=== PATIENT | female | born 1990 | race Two or more races ===

== ENCOUNTER 2020-11-17 05:02 | Inpatient (IN) | payer OTHER ==
[2020-11-17] MEDS ORDERED: Lidocaine 1% 50 ML MDV INJECT ONE (06:14)
[2020-11-17] MEDS ORDERED: Calcium Carbonate 500 MG Tab.Chew PO PRN (06:14)
[2020-11-17] MEDS ORDERED: Acetaminophen 325 MG Tab PO PRN ×2 (06:14→21:44)
[2020-11-17] MEDS ORDERED: Sodium Chloride 0.9% 10 ML Syringe FLUSH PRN (06:14)
[2020-11-17] MEDS ORDERED: Ondansetron 4 MG/2 ML SDV IVPUSH PRN (06:14)
[2020-11-17] MEDS ORDERED: Nalbuphine 10 MG/1 ML Vial IVPUSH PRN (06:14)
[2020-11-17] MEDS ORDERED: Lactated Ringers 1,000 ML IV SCH (06:15)
[2020-11-17] MEDS ORDERED: Oxytocin/Lactated Ringers 10 UNIT/1,000 ML BAG IV SCH ×2 (06:15)
--- NOTE | 2020-11-17 09:44 | PCM.LDHP ---
L&D History of Present Illness - General Date of Service: 11/17/20 Admit Problem/Dx: Patient Status Order with Admit Dx/Problem 11/17/20 05:13 Patient Status [ADT] Routine 11/17/20 06:14 Patient Status [ADT] Routine Admission Diagnosis/Problem Admission Diagnosis/Problem 11/17/20 09:35 Dalila is a 30-year-old 4 para 2-1-0-3 male at 39-3/7 weeks gestational age with an URIAH of 11/22/2011 admitted for active labor and progressive cervical dilation for a trial of labor after section for an attempt at vaginal after section. Source of Information: Patient History Limitations: Reports: No Limitations - History of Present Illness Introduction:: Dalila is a 30-year-old 4 para 2-1-0-3 male at 39-3/7 weeks gestational age with an URIAH of 11/23/2011 admitted for active labor and progressive cervical dilation for a trial of labor after section for an attempt at vaginal after section. Patient has had 2 vaginal deliveries with her first 2 pregnancies and then a section at 34 weeks for placenta previa. She wishes to be back. The procedure of , its risks, benefits, alternatives of care including repeat were discussed in detail with her. They have been previously discussed with her by Dr. Chavis. She wishes to proceed and has signed a consent for trial of labor after section for and for repeat section if necessary. Preoperative laboratory testing has been performed, consents are signed, patient has an IV in place, seizure and surgery services have been notified of her presence in L&D and she is evaluated with near continuous monitoring. COURT RECORDING MONITOR history: 3 para 2-1-0-3. URIAH of 11/22/2020 was determined by her LMP of 02/16/2020 and supported by an ultrasound done on 04/16/2020 and supported also by second ultrasound on 06/30/2020. She has had a relatively unremarkable course. She is received most of her care in [facility] but because they do not do VBACs there transferred her care to Dr. Christine at 31-2/7 weeks. She was seen by Dr. Chavis for 3 visits. She reports no significant concerns with her . Her weight gain was approximately 20 pounds. No signs been stable throughout the . Laboratory testing in : Blood is O+ with a negative antibody screen. First hemoglobin was 13.5 and platelets were 283,000. She is rubella immune. RPR is nonreactive. Syphilis IgG and IgM nonreactive. Hepatitis B surface antigen nonreactive. Hepatitis C nonreactive. Chlamydia and gonorrhea test both negative. Second trimester hemoglobin is 10.8 g/dL and platelets are 239,000. 1 hour GTT was normal at 104. Group B strep was negative. Allergies: None Medications: 1. vitamins 1 daily Past medical history: 1. Vaginal delivery x2 Past surgical history: 1. Appendectomy 2. [place] tooth extraction Family history: Mother and father are alive and generally good health. Patient has multiple brothers and sisters who are alive and well. Paternal grandfather is alive in his 90s and reasonably healthy. Paternal grandmother secondary to old age. Maternal grandparents both . No anesthesia, bleeding, blood clotting problems noted in the family. Patient is . is Morales. She does not use any significance alcohol, drugs or tobacco. She works outside the home. works in the [employer]. Review of systems: Review of systems: In general patient has no complaints except for contractions that are coming on a more frequent basis every 6 to 7 minutes. She has had some bloody show also. If she is made cervical change from evaluation clinic. Skin: Negative Lungs: No infectious symptoms or shortness of breath Cardiovascular: No chest pain or exercise intolerance Breasts: No lumps, changes in size, pain, dimpling, discharge or axillary or supraclavicular concerns. Patient plans to breast-feed. GI: Negative : Body habitus changes associated with . Musculoskeletal: Negative Neurological: Negative Physical exam: In general the patient is well-developed, well-nourished, pleasant female of stated age in no acute distress. Skin is warm dry without lesions. HEENT, neck and back within normal limits. Lungs are clear with good breath sounds in all lung gamez. Cardiovascular exam shows regular and rhythm without murmurs. Abdomen is gravid with fundal height consistent with term . Baby in vertex presentation Genital per digital exam shows 3 cm, 80% effaced, -3 station but well applied to cervix, mid position, cephalic presentation, soft. Extremities and neurological exam are grossly within normal limits. - Related Data Allergies/Adverse Reactions: Allergies Allergy/AdvReac Type Severity Reaction Status Date / Time No Known Allergies Allergy Verified 11/17/20 07:20 Home Medications: Home Meds Vits #93/Iron Fum/FA [ Formula Tablet] 1 tab PO DAILY 11/11/20 [History] Magnesium 200 mg PO DAILY 11/17/20 [History] Past Medical History HEENT History: Reports: Impaired Vision Other HEENT History: wears glasses COURT RECORDING MONITOR History: Reports: Psychiatric History: Reports: Anxiety, Depression Other Psychiatric History: PPD - Past Surgical History HEENT Surgical History: Reports: Other (See Below) Other HEENT Surgeries/Procedures: wisdom tooth extraction GI Surgical History: Reports: Appendectomy Female Surgical History: Reports: Section Other Female Surgeries/Procedures: 2018 for placenta previa Social & Family History - Tobacco Use Tobacco Use Status *Q: Former Tobacco User Used Tobacco, but Quit: Yes Month/Year Tobacco Last Used: Second Hand Smoke Exposure: No - Caffeine Use Caffeine Use: Reports: None - Recreational Drug Use Recreational Drug Use: No H&P Review of Systems - Review of Systems: Review Of Systems: See Below L&D Exam - Exam Exam: See Below - Vital Signs Vital Signs: Last Vital Signs Temp 36.6 C 11/17/20 06:34 Pulse 81 11/17/20 06:34 Resp 14 11/17/20 06:34 BP 112/64 11/17/20 06:34 Pulse Ox Weight: 71.169 kg - Patient Data Lab Results Last 24 hrs: Laboratory Results - last 24 hr 11/17/20 11/17/20 11/17/20 Range/Units 05:45 06:30 06:30 WBC 10.55 H (3.98-10.04) K/mm3 RBC 4.15 (3.98-5.22) M/mm3 Hgb 11.6 (11.2-15.7) gm/dl Hct 36.3 (34.1-44.9) % MCV 87.5 (79.4-94.8) fl MCH 28.0 (25.6-32.2) pg MCHC 32.0 L (32.2-35.5) g/dl RDW Std Deviation 43.2 (36.4-46.3) fL Plt Count 235 (182-369) K/mm3 MPV 9.9 (9.4-12.3) fl Neut % (Auto) 74.2 H (34.0-71.1) % Lymph % (Auto) 17.1 L (19.3-51.7) % Wallace % (Auto) 6.4 (4.7-12.5) % Eos % (Auto) 1.2 (0.7-5.8) Baso % (Auto) 0.2 (0.1-1.2) % Neut # (Auto) 7.83 H (1.56-6.13) K/mm3 Lymph # (Auto) 1.80 (1.18-3.74) K/mm3 Wallace # (Auto) 0.68 H (0.24-0.36) K/mm3 Eos # (Auto) 0.13 (0.04-0.36) K/mm3 Baso # (Auto) 0.02 (0.01-0.08) K/mm3 SARS-CoV-2 RNA (MICHAEL) Negative (NEGATIVE) Blood Type O POSITIVE Result Diagrams: 11/17/20 06:30 - Problem List (1) 39 weeks gestation of SNOMED Code(s): 22574993 ICD Code: Z3A.39 - 39 WEEKS GESTATION OF Status: Acute Current Visit: Yes (2) Active labor at term SNOMED Code(s): 66622414 ICD Code: ETC6956 - Status: Acute Current Visit: Yes (3) History of delivery, currently in third trimester SNOMED Code(s): 57406831, 33903885 ICD Code: O09.893 - SUPERVISION OF OTHER HIGH RISK PREGNANCIES, THIRD TRIMESTER Status: Acute Current Visit: Yes (4) Previous section complicating SNOMED Code(s): 667877308, 179910408 ICD Code: O34.219 - MATERNAL CARE FOR UNSP TYPE SCAR FROM PREVIOUS DEL Status: Acute Current Visit: Yes Problem List Initiated/Reviewed/Updated: Yes Orders Last 24hrs: Active Orders 24 hr Category Date Time Status Patient Status [ADT] Routine ADT 11/17/20 06:14 Active Activity as Tolerated [RC] PFP Care 11/17/20 06:14 Active Communication Order [RC] ASDIRECTED Care 11/17/20 06:14 Active Heart Tones [RC] ASDIRECTED Care 11/17/20 06:14 Active Notify Provider [RC] PFP Care 11/17/20 06:14 Active Notify Provider [RC] PRN Care 11/17/20 06:14 Active Peripheral IV Care [RC] . DIRECTED Care 11/17/20 06:14 Active Urinary Catheter Assessment [RC] ASDIRECTED Care 11/17/20 06:14 Active Vaginal Exam [RC] PRN Care 11/17/20 05:14 Active Vital Signs [RC] PER UNIT ROUTINE Care 11/17/20 05:13 Active Regular Diet [DIET] Diet 11/17/20 Breakfast Active PATIENT RETYPE [BBK] Routine Lab 11/17/20 07:32 Ordered RAPID PLASMA REAGIN,RPR [CHEM] Routine Lab 11/17/20 06:30 Received TYPE AND SCREEN [BBK] Routine Lab 11/17/20 06:30 Results Acetaminophen [TylenoL] Med 11/17/20 06:14 Active 650 mg PO Q4H PRN Calcium Carbonate [Tums] Med 11/17/20 06:14 Active 1,000 mg PO Q2H PRN Lactated Ringers [Ringers, Lactated] 1,000 ml Med 11/17/20 06:15 Active IV ASDIRECTED Nalbuphine [Nubain] Med 11/17/20 06:14 Active 10 mg IVPUSH Q2H PRN Ondansetron [Zofran] Med 11/17/20 06:14 Active 4 mg IVPUSH Q4H PRN Oxytocin/Lactated Ringers [Pitocin in LR 10 Units/1,000 Med 11/17/20 06:15 Active ML] 10 unit in 1,000 ml IV .CONTINUOUS Oxytocin/Lactated Ringers [Pitocin in LR 10 Units/1,000 Med 11/17/20 06:15 Active ML] 10 unit in 1,000 ml IV TITRATE Sodium Chloride 0.9% [Saline Flush] Med 11/17/20 06:14 Active 10 ml FLUSH ASDIRECTED PRN Electronic Heart Tones Ext w TOCO [WOMSER] Oth 11/17/20 06:14 Ordered Routine Electronic Heart Tones Internal [WOMSER] Per Unit Oth 11/17/20 06:14 Ordered Routine Peripheral IV Insertion Adult [OM.PC] Routine Oth 11/17/20 06:14 Ordered Resuscitation Status Routine Resus Stat 11/17/20 05:13 Ordered Medication Orders Acetaminophen (Acetaminophen 325 Mg Tab) 650 mg PO Q4H PRN PRN Reason: Pain (Mild 1-3) and fever Calcium Carbonate/Glycine (Calcium Carbonate 500 Mg Tab.Chew) 1,000 mg PO Q2H PRN PRN Reason: Indigestion Lactated Ringer's (Ringers, Lactated) 1,000 mls @ 100 mls/hr IV ASDIRECTED YUE Oxytocin/Lactated Ringer's (Pitocin In Lr 10 Units/1,000 Ml) 10 unit in 1,000 mls @ 12 mls/hr IV TITRATE YUE; Protocol Oxytocin/Lactated Ringer's (Pitocin In Lr 10 Units/1,000 Ml) 10 unit in 1,000 mls @ 100 mls/hr IV .CONTINUOUS YEU; Protocol Nalbuphine HCl (Nalbuphine 10 Mg/1 Ml Vial) 10 mg IVPUSH Q2H PRN PRN Reason: Pain Ondansetron HCl (Ondansetron 4 Mg/2 Ml Sdv) 4 mg IVPUSH Q4H PRN PRN Reason: Nausea/Vomiting Sodium Chloride (Sodium Chloride 0.9% 10 Ml Syringe) 10 ml FLUSH ASDIRECTED PRN PRN Reason: Keep Vein Open Assessment/Plan Comment:: 1.Dalila is a 30-year-old 4 para 2-1-0-3 male at 39-3/7 weeks gestational age with an URIAH of 11/22/2011 admitted for active labor and progressive cervical dilation for a trial of labor after section for an attempt at vaginal after section. 2. Group B strep negative 3. Risk factors for the include: History of previous section desire for repeat section. 4. Patient plans to breast-feed 5. Patient desires to do natural labor but has used epidural in the past and knows that it is available if she so desires 6. Routine preoperative labs, /trial of labor after s ection precautions taken including labs, consents for trial of labor after section for an attempt at vaginal after section, near continuous monitoring, alerting surgery and anesthesia that candidate is in labor and delivery. 7. Anticipate .
[2020-11-17] MEDS ORDERED: diphenhydrAMINE 50 MG/ML SDV IVPUSH PRN (13:14)
[2020-11-17] MEDS ORDERED: Bupivacaine/fentaNYL/NS 100 ML Bag EPIDUR PRN (13:14)
[2020-11-17] MEDS ORDERED: ePHEDrine 50 MG/ML SDV IVPUSH PRN (13:14)
[2020-11-17] MEDS ORDERED: fentaNYL 100 MCG/2 ML SDV EPIDUR PRN (13:14)
[2020-11-17] MEDS ORDERED: Witch Hazel Medicated Pads 40/Jar TOP PRN (21:44)
[2020-11-17] MEDS ORDERED: Docusate Sodium 100 MG Cap PO PRN (21:44)
[2020-11-17] MEDS ORDERED: Benzocaine/Menthol 20%-0.5% Spray 78 GM Cannister TOP PRN (21:44)
--- NOTE | 2020-11-17 21:55 | PCM.SN.2 ---
- Free Text/Narrative Note: Delivery note: Stage I: Dalila is a 30-year-old 4 now para 3104 female at 39-3/7 weeks gestational age with an URIAH of 11/22/2011 admitted for active labor and progressive cervical dilation for a trial of labor after section for an attempt at vaginal after section. Patient was admitted in early labor with bloody show and cervical change from the clinic to to 3+ centimeters. Baby in vertex presentation with head well applied to cervix. Cervix is 2 cm, soft, anterior, bag mena intactwas ruptured with resultant clear amniotic fluid. Patient underwent natural labor and became completely dilated at approximately 1650 hrs. on 11/17/2020. Stage II: After complete cervical dilation Dalila pushed for short period time and at 1653 hrs. she delivered a viable, gaona, female infant with Apgars of 8 and 9, a length of 19.0 inches and a weight of 6 pounds 12 ounces (3060 g). The baby was placed on mom's abdomen. She was dried with warm blanket and nose and mouth were bulb suctioned. Pitocin was increased to approximately 500 cc an hour with routine concentration of 10 units/L. This to facilitate increase in uterine tone and decrease likelihood of bleeding. Patient was noted to have umbilical cord with 3 vessels. The cord was cut after 3 minutes. No lacerations were encountered and no suturing was needed. Cord had 3 vessels. Cord blood was obtained. Stage III: Placenta delivered at 1659 hrs in a [place] presentation, appeared intact and complete and was discarded per patient desire. Estimated blood loss was 150 cc. Patient plans to breast-feed. Condition: Good
[2020-11-18] MEDS: Ibuprofen 600 MG Tab PO PRN ×3 (00:29→09:32)
--- NOTE | 2020-11-18 08:13 | PCM.SN.2 ---
- Free Text/Narrative Note: Post Progress Note PPD #1 Subjective: Doing well overall. Ambulating without difficulty. Lochia minimal. Voiding without difficulty. Tolerating regular diet without nausea or vomiting. Pain controlled with oral medications. Breast-feeding with minimal difficulty. Objective: Vitals: Vital Signs - 24 hr 11/17/20 11/18/20 20:23 03:40 Temperature 36.4 C 35.8 C L Pulse, 112 H 70 Peripheral Respiratory 14 14 Rate Blood Pressure 105/63 95/68 O2 Sat by Pulse 97 95 Oximetry Physical Exam General: Alert and oriented, no acute distress Lungs: Clear to auscultation bilaterally Heart: Regular rate and rhythm Abdomen: Soft, minimal appropriate tenderness, non-distended, fundus midline, nontender, and 1 fingerbreadth below the umbilicus Extremities: No edema in bilateral lower extremities, no calf tenderness bilaterally Laboratory Results - last 24 hr 11/17/20 11/17/20 Range/Units 06:30 06:30 RPR Non-reactive (NONREACTIVE) Gel Antibody Screen Negative ASSESSMENT: 30-year-old female -1-0-4 s/p vaginal delivery after section PPD #1, complicated by history of section and history of anxiety/depression PLAN: Doing well Breast-feeding with minimal difficulty. Assist as needed Lochia minimal. Continue to monitor for appropriate lochia. Continue routine care Anticipate discharge home today Benoit Ruiz MD 8:12 AM 11/18/2020
--- NOTE | 2020-11-18 08:18 | PCM.DCSUM1 ---
Discharge Summary - Hospital Course Free Text/Narrative:: Stage I: Dalila is a 30-year-old 4 now para 3104 female at 39-3/7 weeks gestational age with an URIAH of 11/22/2011 admitted for active labor and progressive cervical dilation for a trial of labor after section for an attempt at vaginal after section. Patient was admitted in early labor with bloody show and cervical change from the clinic to to 3+ centimeters. Baby in vertex presentation with head well applied to cervix. Cervix is 2 cm, soft, anterior, bag mena intactwas ruptured with resultant clear amniotic fluid. Patient underwent natural labor and became completely dilated at approximately 1650 hrs. on 11/17/2020. Stage II: After complete cervical dilation Dalila pushed for short period time and at 1653 hrs. she delivered a viable, gaona, female infant with Apgars of 8 and 9, a length of 19.0 inches and a weight of 6 pounds 12 ounces (3060 g). The baby was placed on mom's abdomen. She was dried with warm blanket and nose and mouth were bulb suctioned. Pitocin was increased to approximately 500 cc an hour with routine concentration of 10 units/L. This to facilitate increase in uterine tone and decrease likelihood of bleeding. Patient was noted to have umbilical cord with 3 vessels. The cord was cut after 3 minutes. No lacerations were encountered and no suturing was needed. Cord had 3 vessels. Cord blood was obtained. Stage III: Placenta delivered at 1659 hrs in a [place]nejo presentation, appeared intact and complete and was discarded per patient desire. Estimated blood loss was 150 cc. Patient plans to breast-feed. Condition: Good Diagnosis: Stroke: No - Discharge Data Discharge Date: 11/18/20 Discharge Disposition: Home, Self-Care 01 Condition: Good - Referral to Home Health Primary Care Physician: Barby Chavis MD - Discharge Diagnosis/Problem(s) (1) Vaginal delivery SNOMED Code(s): 311535801 ICD Code: O80 - ENCOUNTER FOR FULL-TERM UNCOMPLICATED DELIVERY Status: Acute Current Visit: Yes (2) Vaginal delivery following previous section, delivered SNOMED Code(s): 755744643 ICD Code: O34.219 - MATERNAL CARE FOR UNSP TYPE SCAR FROM PREVIOUS DEL Status: Acute Current Visit: Yes (3) 39 weeks gestation of SNOMED Code(s): 23615430 ICD Code: Z3A.39 - 39 WEEKS GESTATION OF Status: Acute Current Visit: Yes (4) History of delivery, currently in third trimester SNOMED Code(s): 86606406, 48739837 ICD Code: O09.893 - SUPERVISION OF OTHER HIGH RISK PREGNANCIES, THIRD TRIMESTER Status: Acute Current Visit: Yes (5) Previous section complicating SNOMED Code(s): 235168982, 014387738 ICD Code: O34.219 - MATERNAL CARE FOR UNSP TYPE SCAR FROM PREVIOUS DEL Status: Acute Current Visit: Yes - Patient Summary/Data Complications: None Consults: None Hospital Course: Dalila Almendarez was admitted for spontaneous labor in the setting of a trial of labor after section. On admission her cervix was dilated to 3 cm. She was GBS negative. She had artificial rupture of membranes with clear fluid. She progressed to complete and began pushing. On 11/17/2020 she had a uncomplicated vaginal delivery after section of a live female infant at 16:53. Apgars of 8 and 9. Weight of 3060 g (6 pounds 11.9 ounces). Her course was uneventful. Her pain was well controlled and she had minimal lochia. She was ambulating, tolerating a regular diet and voiding normally. She was breast-feeding with minimal difficulty. She was afebrile and her hematocrit was 36.3 on admission. She desired to be discharged home on the morning of PPD #1. Her blood type is O+. - Patient Instructions Diet: Regular Diet as Tolerated Activity: Apply Ice, As Tolerated Activity, Other: Nothing in the vagina for 6 weeks Driving: May Drive Today Showering/Bathing: May Shower Notify Provider of: Fever, Increased Pain, Swelling and Redness, Drainage, Nausea and/or Vomiting Other/Special Instructions: Please contact your physician's office if you have heavy vaginal bleeding enough to soak a pad in less than an hour for several hours. Monitor for any signs of an infection in the breasts with severe pain or redness of the breast. - Discharge Plan *PRESCRIPTION DRUG MONITORING PROGRAM REVIEWED*: Not Applicable *COPY OF PRESCRIPTION DRUG MONITORING REPORT IN PATIENT HUE: Not Applicable Home Medications: Home Meds Vits #93/Iron Fum/FA [ Formula Tablet] 1 tab PO DAILY 11/11/20 [History] Magnesium 200 mg PO DAILY 11/17/20 [History] Acetaminophen [Tylenol] 650 mg PO Q4H PRN tablet 11/18/20 [Rx] Benzocaine/Menthol [Dermoplast Pain Relief 20%-0.5% [place]] 1 spray TOP ASDIRECTED PRN canister 11/18/20 [Rx] Docusate Sodium [Colace] 100 mg PO BID PRN cap 11/18/20 [Rx] Ibuprofen [Motrin] 600 mg PO Q6H PRN tablet 11/18/20 [Rx] richard Cota [Tucks] 1 pad TOP ASDIRECTED PRN pad 11/18/20 [Rx] Patient Handouts: Care After Vaginal Delivery Referrals: Amaris Nails [Other] (Follow-up in 2 to 6 weeks for routine visit or earlier as needed.) Barby Chavis MD [Primary Care Provider] - - Discharge Summary/Plan Comment DC Time >30 min.: No Total # of Minutes for Discharge Time: 15 minutes - Patient Data Vitals - Most Recent: Last Vital Signs Temp 35.8 C L 11/18/20 03:40 Pulse 70 11/18/20 03:40 Resp 14 11/18/20 03:40 BP 95/68 11/18/20 03:40 Pulse Ox 95 11/18/20 03:40 Weight - Most Recent: 71.169 kg I&O - Last 24 hours: Intake & Output 11/17/20 11/18/20 11/18/20 22:59 06:59 14:59 Intake Total 2240 Balance 2240 Lab Results - Last 24 hrs: Laboratory Results - last 24 hr 11/17/20 11/17/20 Range/Units 06:30 06:30 RPR Non-reactive (NONREACTIVE) Gel Antibody Screen Negative Med Orders - Current: Current Medications Acetaminophen (Acetaminophen 325 Mg Tab) 650 mg PO Q4H PRN PRN Reason: mild pain or fever Benzocaine/Menthol (Benzocaine/Menthol 20%-0.5% [place] 78 Gm Cannister) 0 gm TOP ASDIRECTED PRN PRN Reason: Perineal Comfort Measure Docusate Sodium (Docusate Sodium 100 Mg Cap) 100 mg PO BID PRN PRN Reason: Constipation Ibuprofen (Ibuprofen 600 Mg Tab) 600 mg PO Q4H PRN PRN Reason: Mild pain or fever Last Admin: 11/18/20 04:42 Dose: 600 mg Documented by: Richard Cota (Richard Cota Medicated Pads 40/Jar) 1 pad TOP ASDIRECTED PRN PRN Reason: Perineal Comfort Measure Discontinued Medications Acetaminophen (Acetaminophen 325 Mg Tab) 650 mg PO Q4H PRN PRN Reason: Pain (Mild 1-3) and fever Last Admin: 11/17/20 18:27 Dose: 650 mg Documented by: Calcium Carbonate/Glycine (Calcium Carbonate 500 Mg Tab.Chew) 1,000 mg PO Q2H PRN PRN Reason: Indigestion Diphenhydramine HCl (Diphenhydramine 50 Mg/Ml Sdv) 25 mg IVPUSH Q6H PRN PRN Reason: pruritis Ephedrine Sulfate (Ephedrine 50 Mg/Ml Sdv) 5 mg IVPUSH ASDIRECTED PRN PRN Reason: Hypotension Fentanyl (Fentanyl 100 Mcg/2 Ml Sdv) 100 mcg EPIDUR Q3H PRN PRN Reason: Pain Fentanyl/Bupivacaine HCl (Bupivacaine/Fentanyl/Ns 100 Ml Bag) 100 ml EPIDUR ASDIRECTED PRN PRN Reason: Pain Lactated Ringer's (Ringers, Lactated) 1,000 mls @ 100 mls/hr IV ASDIRECTED YUE Last Admin: 11/17/20 13:00 Dose: 100 mls/hr Documented by: Oxytocin/Lactated Ringer's (Pitocin In Lr 10 Units/1,000 Ml) 10 unit in 1,000 mls @ 12 mls/hr IV TITRATE YUE; Protocol Last Titration: 11/17/20 15:30 Dose: 5 munits/min, 30 mls/hr Documented by: Oxytocin/Lactated Ringer's (Pitocin In Lr 10 Units/1,000 Ml) 10 unit in 1,000 mls @ 100 mls/hr IV .CONTINUOUS YUE; Protocol Lidocaine HCl (Lidocaine 1% 50 Ml Mdv) 50 ml INJECT ONETIME ONE Stop: 11/17/20 06:15 Last Admin: 11/17/20 18:36 Dose: Not Given Documented by: Nalbuphine HCl (Nalbuphine 10 Mg/1 Ml Vial) 10 mg IVPUSH Q2H PRN PRN Reason: Pain Ondansetron HCl (Ondansetron 4 Mg/2 Ml Sdv) 4 mg IVPUSH Q4H PRN PRN Reason: Nausea/Vomiting Sodium Chloride (Sodium Chloride 0.9% 10 Ml Syringe) 10 ml FLUSH ASDIRECTED PRN PRN Reason: Keep Vein Open
== END 2020-11-18 17:50 | disposition home or self-care (01) | DRG 807 ==
LOC: JD.OB 05:02 → JD.OBCHECK 05:02 → JD.OB 06:14 → OBSVTOIN 16:53 → JD.OB 16:54
PROVIDERS: ADMIT Obstetrics & Gynecology; ATTEND Obstetrics & Gynecology
PROC: 10E0XZZ Delivery of Products of Conception, External Approach (ICD-10-PCS; principal; 2020-11-17)
DX: O34.211 Maternal care for low transverse scar from previous cesarean delivery (principal); Z37.0 Single live birth; Z3A.39 39 weeks gestation of pregnancy; O99.344 Other mental disorders complicating childbirth; F41.8 Other specified anxiety disorders; Z20.822 Contact with and (suspected) exposure to COVID-19
CPT/HCPCS: 36415; 59025; 59409; 85025; 86592; 86850; 86900; 86901; A9270-GY; J2590; J7120; U0002